=== PATIENT | female | born 1970 | race Caucasian/White ===

== ENCOUNTER → 2016-07-29 | Outpatient (CLI) | payer MEDICAID ==
[2016-07-29 11:18] LABS: Basophils % (A) 0 %; CH 32.8; CHCM 34.5; Eosinophils # (A) 0.1 k/uL (0-0.7); Eosinophils % (A) 2 %; HCT 44.9 % (34.0-46.0); HDW 2.38; HGB 15.2 gm/dL (11.4-16.0); Luc # (Auto) 0.12; Luc % (Auto) 2; Lymphocytes # (A) 2.4 k/uL (1.0-4.8); Lymphocytes % (A) 29 %; MCH 32.3 pg (25.0-35.0); MCHC 33.9 g/dL (31.0-37.0); MCV 95.3 fL (80.0-100.0); Mean Platelet Volume 6.2; Monocytes # (A) 0.5 k/uL (0-1.0); Monocytes % (A) 5 %; Neutrophils # (A) 5.3 k/uL (1.3-7.7); Neutrophils % (A) 63 %; RBC 4.71 m/uL (3.80-5.40); RDW 12.9 % (11.5-15.5); WBC 8.4 k/uL (3.8-10.6); WBC (Perox) 8.69
[2016-07-29 12:12] LABS: Hemoglobin A1C 5.3 % (4.2-6.1)
[2016-07-29 12:37] LABS: ALT 58 U/L (9-52); AST 48 U/L (14-36); Alkaline Phosphatase 90 U/L (38-126); Anion Gap 10 mmol/L; Blood Urea Nitrogen 13 mg/dL (7-17); Calcium 9.8 mg/dL (8.4-10.2); Carbon Dioxide 27 mmol/L (22-30); Chloride 101 mmol/L (98-107); Cholesterol 219 mg/dL (<200); Glucose 91 mg/dL (74-99); HDL Cholesterol 60 mg/dL (40-60); Magnesium 2.1 mg/dL (1.6-2.3); Non-African American GFR(MDRD) >60 (>60 ml/min/1.73 sqM); Potassium 4.9 mmol/L (3.5-5.1); Sodium 138 mmol/L (137-145); Triglycerides 180 mg/dL (<150)
== END | disposition home or self-care (01) ==
LOC: LABWHC1 09:55
PROVIDERS: ATTEND Nurse Practitioner Family
DX: G43.909 Migraine, unspecified, not intractable, without status migrainosus (principal)
CPT/HCPCS: 36415; 80053; 80061; 82306; 83036; 83735; 84439; 84443; 85025

== ENCOUNTER → 2016-07-30 | Outpatient (CLI) | payer MEDICAID ==
--- NOTE | 2016-08-04 13:30 | MM ---
Reason for exam: screening (asymptomatic). Last mammogram was performed 7 years and 9 months ago. History: Taking hormonal contraceptives for 19 years beginning at age 19. Physical Findings: A clinical breast exam by your physician is recommended on an annual basis and results should be correlated with mammographic findings. MG 3D Screening Mammo W/Cad Bilateral CC and MLO view(s) were taken. Prior study comparison: November 02, 2008, bilateral digital screening mammogram. The breast tissue is heterogeneously dense. This may lower the sensitivity of mammography. There is no discrete abnormality. ASSESSMENT: Negative, BI-RAD 1 RECOMMENDATION: Routine screening mammogram of both breasts in 1 year.
== END | disposition home or self-care (01) ==
LOC: RADMAMWWP 13:53
PROVIDERS: ATTEND Internal Medicine
DX: Z12.31 Encounter for screening mammogram for malignant neoplasm of breast (principal)
CPT/HCPCS: 77063; G0202

== ENCOUNTER 2019-01-07 10:20 | Emergency (ER) | payer MEDICAID, OTHER ==
[2019-01-07 10:38] VITALS: BP 148/70; PULSE 89; RESP 18; TEMP 98.3
--- NOTE | 2019-01-07 11:03 | ED ---
Lower Extremity Injury HPI - General Chief Complaint: Extremity Injury, Lower Stated Complaint: Fall Time Seen by Provider: 01/07/19 10:39 Source: patient, RN notes reviewed Mode of arrival: ambulatory Limitations: no limitations - History of Present Illness Initial Comments: 49-year-old female presents emergency Department chief complaint left knee pain. 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 Patient states that she slipped, twisted and fell onto her left knee. She has mild left ankle pain but denies any significant issues. Denies any head injury no loss conscious. Patient was advised to be seen in the ER secondary to work injury. She does admit that she had increasing pain since yesterday due to swelling. - Related Data Allergies Allergy/AdvReac Type Severity Reaction Status Date / Time No Known Allergies Allergy Verified 01/07/19 10:38 Review of Systems ROS Statement: Those systems with pertinent positive or pertinent negative responses have been documented in the HPI. ROS Other: All systems not noted in ROS Statement are negative. Past Medical History Past Medical History: No Reported History History of Any Multi-Drug Resistant Organisms: None Reported Past Surgical History: No Surgical Hx Reported Past Psychological History: No Psychological Hx Reported Smoking Status: Never smoker Past Alcohol Use History: Occasional Past Drug Use History: None Reported General Exam Limitations: no limitations General appearance: alert, in no apparent distress Head exam: Present: atraumatic, normocephalic, normal inspection Eye exam: Present: normal appearance, PERRL, EOMI. Absent: scleral icterus, conjunctival injection, periorbital swelling Cardiovascular Exam: Present: regular rate, normal rhythm, normal heart sounds. Absent: systolic murmur, diastolic murmur, rubs, gallop, clicks Extremities exam: Present: other (Left knee tenderness to the anterior medial aspect there is some ecchymosis noted moderate swelling has pain with valgus and varus no laxity with anterior posterior drawer, full range of motion neurovascular intact no Tenderness no tenderness proximal to the left) Neurological exam: Present: alert Skin exam: Present: warm, dry, intact, normal color. Absent: rash Course Vital Signs 01/07/19 10:36 Temperature 98.3 F Pulse Rate 89 Respiratory 18 Rate Blood Pressure 148/70 O2 Sat by Pulse 99 Oximetry Medical Decision Making - Medical Decision Making X-rays were obtained of the left knee there are no acute fractures. Conservative treatment will be continued. Patient will follow-up with [facility] and possible MRI if persistent symptoms Disposition Clinical Impression: Left knee sprain, Contusion of left knee Disposition: HOME SELF-CARE Condition: Stable Instructions (If sedation given, give patient instructions): Knee Pain (ED) Additional Instructions: Please return to the Emergency Department if symptoms worsen or any other co ncerns. Is patient prescribed a controlled substance at d/c from ED?: No Referrals: Forrest Tejada MD [Primary Care Provider] - 1-2 days Time of Disposition: 11:20
--- NOTE | 2019-01-07 11:25 | XR ---
EXAMINATION TYPE: XR knee 4V LT , DATE OF EXAM ORDERED: 01/07/2019 HISTORY: fall, pain. COMPARISON: None. FINDINGS: There is peaking of intercondylar spines. No fracture or dislocation is seen. Fullness in the suprapatellar region makes it impossible to exclude any joint effusion. IMPRESSION: 1. NO ACUTE OSSEOUS LESION. 2. EARLY CHANGES OF OSTEOARTHRITIS. 3. I COULD NOT EXCLUDE A LEFT-SIDED KNEE JOINT EFFUSION.
== END 2019-01-07 11:32 | disposition home or self-care (01) ==
LOC: EC 10:20
DX: S83.92XA Sprain of unspecified site of left knee, initial encounter (principal); W01.0XXA Fall on same level from slipping, tripping and stumbling without subsequent striking against object, initial encounter; Y93.01 Activity, walking, marching and hiking; Y92.69 Other specified industrial and construction area as the place of occurrence of the external cause; Y99.0 Civilian activity done for income or pay
CPT/HCPCS: 99283

== ENCOUNTER → 2020-01-31 | Outpatient (CLI) | payer MEDICAID ==
[2020-01-31 10:53] LABS: Basophils # (A) 0.1 k/uL (0-0.2); Basophils % (A) 1 %; Eosinophils # (A) 0.2 k/uL (0-0.7); Eosinophils % (A) 2 %; HCT 46.9 % (34.0-46.0); HGB 15.5 gm/dL (11.4-16.0); Lymphocytes # (A) 2.6 k/uL (1.0-4.8); Lymphocytes % (A) 32 %; MCH 31.6 pg (25.0-35.0); MCHC 33.1 g/dL (31.0-37.0); MCV 95.6 fL (80.0-100.0); Mean Platelet Volume 6.4; Monocytes # (A) 0.5 k/uL (0-1.0); Monocytes % (A) 6 %; Neutrophils # (A) 4.6 k/uL (1.3-7.7); Neutrophils % (A) 57 %; Platelet Count 310 k/uL (150-450); RDW 12.5 % (11.5-15.5)
[2020-01-31 15:28] LABS: Albumin 4.1 g/dL (3.80-4.90); Albumin/Globulin Ratio 2.05 (1.60-3.17); Anion Gap 4.3 mmol/L (4.00-12.00); BUN/Creat Ratio 16.25 Ratio (12.00-20.00); Calcium 9.6 mg/dL (8.7-10.3); Carbon Dioxide 28.7 mmol/L (21.6-31.8); Chol/HDL Ratio 3.53; LDL Cholesterol,Calculated 119.2 mg/dL (0.0-131.0); Magnesium 1.9 mg/dL (1.5-2.4); Non-African American GFR(CKD) 87.2 (60.0-200.0); Potassium 5.1 mmol/L (3.5-5.5); Total Bilirubin 0.8 mg/dL (0.2-1.2); Total Protein 6.1 g/dL (6.2-8.2); VLDL Calculation 19.8 mg/dL (5.00-40.00)
== END | disposition home or self-care (01) ==
LOC: LABWHC1 09:53
PROVIDERS: ATTEND Internal Medicine
DX: Z00.00 Encounter for general adult medical examination without abnormal findings (principal); I10 Essential (primary) hypertension; E78.2 Mixed hyperlipidemia; E55.9 Vitamin D deficiency, unspecified
CPT/HCPCS: 36415; 80053; 80061; 82306; 83735; 84443; 85025

== ENCOUNTER → 2020-03-22 | Outpatient (CLI) | payer MEDICAID ==
--- NOTE | 2020-03-22 11:48 | MM ---
Reason for exam: additional evaluation requested from prior study. Last mammogram was performed 3 years and 8 months ago. History: Taking hormonal contraceptives for 19 years beginning at age 19. Physical Findings: Nurse Summary: 0.25cm nodule in the right breast at 12 o'clock (nurse reena). MG 3D Diag Mammo W/Cad LINA Bilateral LM view(s) were taken. CC with magnification and LM with magnification view(s) were taken of the right breast. Spot compression CC and spot compression CCRM view(s) were taken of the left breast. Prior study comparison: July 30, 2016, bilateral MG 3d screening mammo w/cad. November 02, 2008, bilateral digital screening mammogram. The breast tissue is heterogeneously dense. This may lower the sensitivity of mammography. 12 o'clock subareolar calcifications on the right are new and heterogeneous for which a biopsy is recommended. Central left asymmetric density partially disperses becoming less defined. It moves medial on CCRM view. Ultrasound recommended. No MLO or LAT correlate. These results were verbally communicated with the patient and result sheet given to the patient on 03/22/20. ASSESSMENT: Incomplete: need additional imaging evaluation, BI-RAD 0 RECOMMENDATION: Ultrasound of both breasts.
--- NOTE | 2020-03-22 11:51 | USB ---
Reason for exam: additional evaluation requested from abnormal screening. History: Taking hormonal contraceptives for 19 years beginning at age 19. US Breast Limited BILAT Right complete breast ultrasound includes all four quadrants, the retroareolar region and axilla. Finding demonstrates no cystic or solid lesion seen. Left limited breast ultrasound including focal area of concern, retroareolar and axilla demonstrates no cystic or solid lesion seen. Scanned 11-1 o'clock. 6 month follow up left mammogram. These results were verbally communicated with the patient and result sheet given to the patient on 03/22/20. ASSESSMENT: Suspicious, BI-RAD 4 RECOMMENDATION: Stereotactic core biopsy of the right breast. Called Dr. Tejada's office with mammographic findings and has scheduled an appointment for the patient for 03/22/20 at 1:[address] Tarango. PRELIMINARY REPORT CALLED AND FAXED TO DR. TARANGO ON 03/22/20. Follow-up diagnostic mammogram of the left breast in 6 months.
== END | disposition home or self-care (01) ==
LOC: RADMAMWWP 09:23
PROVIDERS: ATTEND Internal Medicine
DX: N63.10 Unspecified lump in the right breast, unspecified quadrant (principal)
CPT/HCPCS: 77062; 77066

== ENCOUNTER → 2020-03-22 | Outpatient (CLI) | payer MEDICAID ==
[2020-03-22 13:34] VITALS: BP 129/77; PULSE 57; RESP 18; TEMP 98.5
--- NOTE | 2020-03-22 13:56 | P.GSHP ---
History of Present Illness H&P Date: 03/22/20 Chief Complaint: abnormal mammogram Suzanne is a 50 year old white female who noted some nodularity in her right breast about 8 weeks ago in the 12 oclock area. She had a bilateral mammogram on 03-22-20. This showed some calcification of concern near the subareolar area right breast. Stereotactic core biopsy was recommended for this. Central left asymmetric density was noted and an ultrasound was recommended for this. On the ultrasound no cystic or solid lesions were noted and 6 month follow-up left breast mammogram and ultrasound recommended. In the right breast an ultrasound was done and no cystic or solid lesions were noticed. Core biopsy of the right breast is recommended. The area seen radiographically does not seem to correspond to the area which the patient felt initially.. She felt initially seems to have decreased in prominence. Her last bilateral mammogram was July. She is not complaining of any pain, nipple discharge, or skin changes. Nodularity was not noted in relationship to her menstrual cycle. She has had no breast surgery. She has no history of any breast trauma or infection. Caffeine: 1 coffee/day Nicotine: Negative geraldine-bromine: occasional soy: none Family History: father: pancreatic cancer paternal grandmother: stomach cancer brother: Leukemia Hormonal History: menarche: 14 , breast fed: yes, first born at 28 periods regular on BCP BCP: 29 years hormones: none Surgical history: lasix surgery Medical history: HTN Social history: Smoke: Negative Alcohol: Occasional Drugs: Negative - Constitutional Constitutional: Denies chills, Denies fever - EENT Eyes: denies blurred vision, denies pain Ears: bilateral: tinnitus, deny: decreased hearing Ears, nose, mouth and throat: Denies headache, Denies sore throat - Breasts Breasts: bilateral: as per HPI - Cardiovascular Cardiovascular: Denies chest pain, Denies shortness of breath - Respiratory Respiratory: Denies cough, Denies 7 - Gastrointestinal Gastrointestinal: Denies abdominal pain, Denies diarrhea, Denies nausea, Denies vomiting - Genitourinary (Female) Genitourinary: Denies dysuria, Denies hematuria - Menstruation Comment: perimenopausal - Musculoskeletal Comment: left knee pain Musculoskeletal: Denies myalgias - Integumentary Integumentary: Denies pruritus, Denies rash - Neurological Neurological: Denies numbness, Denies weakness - Psychiatric Psychiatric: Denies anxiety, Denies depression - Endocrine Endocrine: Reports fatigue, Denies weight change - Hematologic/Lymphatic Comment: none - Allergic/Immunologic Allergic/Immunologic: Reports seasonal allergies Past Medical History Past Medical History: No Reported History History of Any Multi-Drug Resistant Organisms: None Reported Past Surgical History: No Surgical Hx Reported Past Psychological History: No Psychological Hx Reported Past Alcohol Use History: Occasional Past Drug Use History: None Reported Medications and Allergies Home Medications Medication Instructions Recorded Confirmed Type Cholecalciferol [Vitamin D3 (25 10,000 unit PO QAM 03/22/20 03/22/20 History Mcg = 1000 Iu)] Levonorgestrel-Ethin Estradiol 1 tab PO HS 03/22/20 03/22/20 History [Lutera-28 Tablet] lisinopriL [Zestril] 10 mg PO HS 03/22/20 03/22/20 History Allergies Allergy/AdvReac Type Severity Reaction Status Date / Time No Known Allergies Allergy Verified 03/22/20 13:12 Surgical - Exam BMI 39.9 - General well developed, no distress - Eyes normal ocular movement - ENT normal pinna, normal mucosa - Neck no masses, trachea midline - Respiratory normal expansion, normal respiratory effort, clear to auscultation - Cardiovascular Rhythm: regular Heart Sounds: normal: S1, S2 - Abdomen Abdomen: soft, bowel sounds - Integumentary normal turgor - Neurologic no disoriented, no combative - Musculoskeletal normal gait - Psychiatric oriented to time, oriented to person, oriented to place, speech is normal, memory intact Breast exam: BRA: 42C inspection: Bilateral grade 2 ptosis no skin indentation no nipple inversion Palpation: right breast: Multiple positional exam fibrocystic changes, at the 12 o'clock position there is a small area of nodularity which appears to be most likely fibrocystic in nature Right axilla: No adenopathy of concern Left breast: Multiple positional exam fibrocystic changes Left axilla: No adenopathy of concern Results Mammogram and ultrasound results reviewed with Dr. Brooke Assessment and Plan Assessment: Patient: 1. Right breast palpable nodularity 12:00 2. Abnormal right breast mammogram left breast ultrasound 3. Fibrocystic breast changes Plan: 1. Right breast stereotactic core biopsy area of microcalcifications question if this is in the area of the palpable nodularity 2. Repeat left breast mammogram and ultrasound in 6 months 3. Following stereotactic core biopsy. Review the location and may recommend an FNA of the area of palpable abnormality at 12:00 Risk and benefits of the procedure are discussed with the patient. She understands and wishes to proceed. CC: Dr. Tejada
== END | disposition home or self-care (01) ==
LOC: WWCWWP 12:53
PROVIDERS: ATTEND Surgery
DX: Z53.9 Procedure and treatment not carried out, unspecified reason (principal)

== ENCOUNTER → 2020-04-01 | Day surgery (SDC) | payer MEDICAID ==
[2020-04-01 09:37] VITALS: RESP 16
[2020-04-01 10:42] VITALS: BP 148/90; PULSE 55; TEMP 98.8
--- NOTE | 2020-04-01 11:11 | P.PCN ---
Date of Procedure: 04/01/20 Preoperative Diagnosis: Microcalcifications of concern right breast, periareolar area Postoperative Diagnosis: Same Procedure(s) Performed: Stereotactic core biopsy right breast Surgeon: Andria Tarango Pathology: other (breast tissue) Condition: stable Disposition: same day Indications for Procedure: Microcalcifications of concern right breast Operative Findings: Radiograph of specimens reveals microcalcifications of concern Description of Procedure: Suzanne is a 50-year-old white female who had a mammogram performed on 03-22-20 revealing 12:00 subareolar calcifications on the right which were new and heterogeneous for which stereotactic biopsy was recommended. The patient understood the risk and benefits and wished to proceed. The patient was taken to the stereotactic core biopsy room and positioned on the low rad table. A demonstrator sales film was obtained. The area of concern was identified. A CC from above approach was utilized. The breast was prepped using Betadine. 24 mL of 1% lidocaine was used to anesthetize the area of concern A 9-gauge vacuum-assisted core rotating biopsy needle was driven to the correct coordinates. The needle was fired and a post fire film was obtained revealing the needle told to be in the correct location. Approximately 14 core biopsies were obtained. Radiograph of the specimen revealed the area of concern had been adequately sampled. The findings were concordant with the area that we were sampling. A secure jayce top hat clip was left and noted to be in the correct location on post procedure radiograph. The patient tolerated the procedure in stable condition. She will follow up next week with Dr. Arriaga. Specimen is sent for pathology. Of importance is the fact that the patient had a palpable area at approximately the 12 o'clock position of the right breast which may or may not corresponded at which is seen radiographically. This will be further assessed on her postoperative visit.
--- NOTE | 2020-04-01 17:37 | MM ---
EXAMINATION TYPE: MG stereo VAD BX RT DATE OF EXAM: 04/01/2020 COMPARISON: 03/22/2020 CLINICAL HISTORY: 50-year-old female R92.8 TECHNIQUE: Stereotactic guided core biopsy of the anterior 12:00 right breast microcalcifications. FINDINGS: The procedure of stereotactic guided core biopsy was explained to the patient. Benefits, a lternatives, and risks were discussed. An informed consent was then obtained. The shortness pathway for biopsy was chosen. [facility] pathway was a superior approach. I performed the localization, then surgeon, Dr. Batr Catalan performed the remainder of the procedure. A vacuum as sisted biopsy gun was used to obtain multiple core samples. The patient tolerated the procedure well without any immediate complication. The patient was kept in the radiology department for short stay after the procedure and then discharged home in stable condi tion. Targeted calcifications are identified in specimen mammogram. Post biopsy mammogram shows the clip to appear in satisfactory position relative to the targeted area of concern on the preprocedure images. Minimal residual calcifications remaining at the site of biopsy. IMPRESSION: SUCCESSFUL, UNCOMPLICATED STEREOTACTIC GUIDED CORE BIOPSY OF 12:00 ANTERIOR RIGHT BREAST MICROCALCIFI CATIONS. FULL PATHOLOGY RESULTS TO FOLLOW. RECOMMENDATION: 1. Pathology results of the right breast pending. 2. Six-month follow-up diagnostic left breast mammogram as was recommended on 03/22/2020.
== END ==
LOC: RADMAMWWP 09:26
PROVIDERS: ATTEND Surgery
DX: N64.1 Fat necrosis of breast (principal); N61.0 Mastitis without abscess; R92.1 Mammographic calcification found on diagnostic imaging of breast
CPT/HCPCS: 88305; 19081; J2001

== ENCOUNTER → 2020-04-11 | Outpatient (CLI) | payer MEDICAID ==
--- NOTE | 2020-04-11 09:14 | P.PN ---
Progress Note - Text Progress Note Date: 04/11/20 Stacia is a -year-old white female status post right breast stereotactic core biopsy on . Pathology revealed fat necrosis/scar with calcifications and inflammation. This was negative for malignancy. The postprocedure mammogram was reviewed with radiology and the area of the clip appears to be exactly in the area of palpable abnormality. She has developed a small hematoma in the area of the biopsy which is right over the area of previous palpable abnormality. This was approximately 3 cm from the nipple and when measured in the office the area of probable changes 3 cm from the nipple. It is therefore felt most likely that the area of probable change corresponds with the area seen on mammogram. Physical examination: Mild ecchymosis right breast small hematoma at site of biopsy no evidence of infection Impression: 1. Probable change right breast consistent with the area posterior biopsy most likely represents fat necrosis/scar with calcifications and inflammation Plan: 1. Examine patient again after hematoma has Resolved 2. We have discussed watchful waiting versus core biopsy of probable change or biopsy in the operating room of the area persists At this time I believe that the area that was probable initially is most likely consistent with that which was biopsied stereotactically and benign.
[2020-04-11 09:27] VITALS: BP 140/72; PULSE 66; RESP 18; TEMP 98.1
== END | disposition home or self-care (01) ==
LOC: WWCWWP 09:10
PROVIDERS: ATTEND Surgery
DX: Z53.9 Procedure and treatment not carried out, unspecified reason (principal)

== ENCOUNTER → 2020-05-09 | Outpatient (CLI) | payer MEDICAID ==
[2020-05-09 14:18] VITALS: BP 171/80; PULSE 74; RESP 20; TEMP 97.8
--- NOTE | 2020-05-09 14:26 | P.PN ---
Progress Note - Text Progress Note Date: 05/09/20 Stacia is a 50-year-old white female status post right breast stereotactic core biopsy on . Pathology revealed fat necrosis/scar with calcifications and inflammation. This was negative for malignancy. The postprocedure mammogram was reviewed with radiology and the area of the clip ap pears to be exactly in the area of palpable abnormality. She developed a small hematoma in the area of the biopsy which is right over the area of previous palpable abnormality. This was approximately 3 cm from the nipple and when measured in the office the area of palpable change was 3 cm from the nipple. It is therefore felt most likely that the area of palpable change corresponds with the area seen on mammogram and biopsied. The patient states at this time she does not feel the initial lump. She has a small hematoma at the biopsy site near the skin surface. She has had no fever or chills, she has no complaints related to her breast at this time. She is not complaining of any breast pain. Physical examination: Mild ecchymosis right breast small hematoma at site of biopsy no evidence of infection. This area of initial nodularity in the right breast is no longer palpable. Impression: 1. Palpable change right breast consistent with the area of prior biopsy most likely represents fat necrosis/scar with calcifications and inflammation, no longer able to palpate Plan: 1. repeat right breast mammogram and ultrasound in 6 months with examination at that time 2. If patient notes any changes in her breast of concern we would like to see her immediately. At this time I believe that the area that was palpable initially is most likely consistent with that which was biopsied stereotactically and benign.
== END | disposition home or self-care (01) ==
LOC: WWCWWP 14:09
PROVIDERS: ATTEND Surgery
DX: L76.32 Postprocedural hematoma of skin and subcutaneous tissue following other procedure (principal); Z98.890 Other specified postprocedural states

== ENCOUNTER → 2020-10-08 | Outpatient (CLI) | payer MEDICAID ==
--- NOTE | 2020-10-08 14:14 | MM ---
Reason for exam: follow-up at short interval from prior study. Last mammogram was performed 7 months ago. History: Benign MG stereo VAD BX RT of the right breast, April 01, 2020. Taking hormonal contraceptives for 19 years beginning at age 19. Physical Findings: Nurse did not find any significant physical abnormalities on exam. MG 3D Diag Mammo W/Cad LINA Bilateral CC and MLO view(s) were taken. Prior study comparison: March 22, 2020, bilateral MG 3d diag mammo w/cad LINA. July 30, 2016, bilateral MG 3d screening mammo w/cad. There are scattered fibroglandular densities. Previous mammotome biopsy in the right breast. The central left CC asymmetric density is less defined and shows no persisting abnormality. No significant new findings when compared with previous films. These results were verbally communicated with the patient and result sheet given to the patient on 10/08/20. ASSESSMENT: Benign, BI-RAD 2 RECOMMENDATION: Routine screening mammogram of both breasts in 1 year.
== END | disposition home or self-care (01) ==
LOC: RADMAMWWP 13:02
PROVIDERS: ATTEND Surgery
DX: N64.89 Other specified disorders of breast (principal)
CPT/HCPCS: 77062; 77066

== ENCOUNTER → 2020-10-29 | Outpatient (CLI) | payer MEDICAID | END | disposition home or self-care (01) | LOC: LABWHC1 14:13 | PROVIDERS: ATTEND Thoracic Surgery (Cardiothoracic Vascular Surgery) | DX: Z00.00 Encounter for general adult medical examination without abnormal findings (principal) | CPT/HCPCS: 87635 ==

== ENCOUNTER 2021-04-13 13:09 | Emergency (ER) | payer MEDICAID ==
[2021-04-13 13:15] VITALS: BP 148/78; PULSE 61; RESP 18; TEMP 98.2
[2021-04-13] MEDS ORDERED: KETOROLAC 15 MG/ML 1 ML VIAL IM STA (13:38)
--- NOTE | 2021-04-13 13:48 | ED ---
General Adult HPI - General Chief complaint: Extremity Injury, Upper Stated complaint: Fall-L shoulder injury Time Seen by Provider: 04/13/21 13:16 Source: patient Mode of arrival: ambulatory Limitations: no limitations - History of Present Illness Initial comments: 51-year-old female presents to the emergency room for a chief complaint of left shoulder pain. Patient was walking into work 2 days ago when she slipped and fell. States she hit her left elbow on a car and it jammed her left shoulder. When she woke up yesterday morning the pain was severe. States it has persisted and it is painful to move. Patient did not hit her head.Patient has no other complaints at this time including shortness of breath, chest pain, abdominal pain, nausea or vomiting, headache, or visual changes. - Related Data Home Medications Medication Instructions Recorded Confirmed Cholecalciferol [Vitamin D3 (25 10,000 unit PO QAM 03/22/20 05/09/20 Mcg = 1000 Iu)] lisinopriL [Zestril] 10 mg PO HS 03/22/20 05/09/20 Previous Rx's Medication Instructions Recorded Ketorolac [Toradol] 10 mg PO TID PRN 5 Days #15 tab 04/13/21 Allergies Allergy/AdvReac Type Severity Reaction Status Date / Time No Known Allergies Allergy Verified 04/13/21 13:14 Review of Systems ROS Statement: Those systems with pertinent positive or pertinent negative responses have been documented in the HPI. ROS Other: All systems not noted in ROS Statement are negative. Past Medical History Past Medical History: Hypertension, Sleep Apnea/CPAP/BIPAP History of Any Multi-Drug Resistant Organisms: None Reported Past Surgical History: No Surgical Hx Reported Additional Past Surgical History / Comment(s): lasik eye surgery Past Anesthesia/Blood Transfusion Reactions: No Reported Reaction Past Psychological History: No Psychological Hx Reported Smoking Status: Never smoker Past Alcohol Use History: Occasional Past Drug Use History: None Reported - Past Family History Father Family Medical History: Cancer Additional Family Medical History / Comment(s): pancreatic cancer Brother(s) Family Medical History: Cancer Additional Family Medical History / Comment(s): leukemia General Exam - General Exam Comments Initial Comments: Left shoulder: Patient has a radial pulse 2+, capillary refill less than 2 seconds left upper extremity. Patient has about 30 of flexion and abduction of the left shoulder but then pain is elicited. Patient does not have any ecchymosis or edema. Sensation intact left upper extremity. Limitations: no limitations General appearance: alert, in no apparent distress Head exam: Present: atraumatic Eye exam: Present: normal appearance, PERRL, EOMI. Absent: scleral icterus, conjunctival injection ENT exam: Present: normal exam, mucous membranes moist Neck exam: Present: normal inspection, full ROM. Absent: tenderness Respiratory exam: Present: normal lung sounds bilaterally. Absent: respiratory distress, wheezes Cardiovascular Exam: Present: regular rate, normal rhythm, normal heart sounds GI/Abdominal exam: Present: soft, normal bowel sounds. Absent: distended, tenderness Neurological exam: Present: alert Course Vital Signs 04/13/21 13:10 Temperature 98.2 F Pulse Rate 61 Respiratory 18 Rate Blood Pressure 148/78 O2 Sat by Pulse 98 Oximetry Medical Decision Making - Medical Decision Making Vitals are stable. Patient is well-appearing. HPI and physical exam as documented. X-ray of the left shoulder shows no acute fracture or dislocation. At this time patient was given a sling for comfort but advised to only use the sling as absolute necessary and to increase range of motion as much as possible for reducing the risk of adhesive capsulitis. She will follow-up with orthopedics. If she has any worsening symptoms or fever she will return to the emergency room. Disposition Clinical Impression: Shoulder pain, left Disposition: HOME SELF-CARE Condition: Good Instructions (If sedation given, give patient instructions): Shoulder Pain (ED) Additional Instructions: Please take Toradol or Tylenol for pain. Follow-up with orthopedics. Only use sling when necessary and try to do range of motion exercises. Return to the emergency room for any worsening symptoms. Prescriptions: Ketorolac [Toradol] 10 mg PO TID PRN 5 Days #15 tab PRN Reason: Pain Is patient prescribed a controlled substance at d/c from ED?: No Referrals: Forrest Tejada MD [Primary Care Provider] - 1-2 days Kat Talavera DO [Doctor of Osteopathic Medicine] - 1-2 days Time of Disposition: 15:28
--- NOTE | 2021-04-13 14:03 | XR ---
EXAMINATION TYPE: XR shoulder complete LT DATE OF EXAM: 04/13/2021 CLINICAL HISTORY: Pain since recent injury. TECHNIQUE: Three views of the left shoulder are obtained. COMPARISON: None. FINDINGS: There is no acute fracture/dislocation evident in the left shoulder. The acromioclavicula r and glenohumeral joint spaces appear within normal limits. The visualized ribs are intact and unre markable. IMPRESSION: There is no acute fracture or dislocation in the left shoulder.
== END 2021-04-13 15:59 | disposition home or self-care (01) ==
LOC: EC 13:09
DX: M25.512 Pain in left shoulder (principal); I10 Essential (primary) hypertension
CPT/HCPCS: 99283; 96372; 73030; J1885

== ENCOUNTER → 2021-11-06 | Outpatient (CLI) | payer MEDICAID ==
[2021-11-06 15:05] LABS: Basophils # (A) 0.05 X 10*3/uL (0.00-0.10); Basophils % (A) 0.5 %; Eosinophils # (A) 0.14 X 10*3/uL (0.04-0.35); Eosinophils % (A) 1.5 %; HCT 42.4 % (37.2-46.3); HGB 14.4 g/dL (12.0-15.0); Lymphocytes # (A) 2.66 X 10*3/uL (0.90-5.00); Lymphocytes % (A) 28.1 %; MCH 32.9 pg (27.0-32.0); MCV 96.8 fL (80.0-97.0); Mean Platelet Volume 8.9 fL (9.5-12.2); Monocytes # (A) 0.79 X 10*3/uL (0.20-1.00); Monocytes % (A) 8.4 %; NRBC Per 100 WBC 0 /100 WBCS (0.0-0.0); Neutrophils # (A) 5.73 X 10*3/uL (1.80-7.70); Neutrophils % (A) 60.5 %; Platelet Count 300 X 10*3/uL (140-440); RBC 4.38 X 10*6/uL (4.10-5.20); RDW 12.1 % (11.5-14.5); WBC 9.46 X 10*3/uL (4.50-10.00)
[2021-11-06 16:41] LABS: ALT 71 U/L (8-44); AST 43 U/L (13-35); African American GFR (CKD) 119.3 (60.0-200.0); Albumin 4.2 g/dL (3.8-4.9); Alkaline Phosphatase 115 U/L (41-126); BUN/Creat Ratio 19.41 Ratio (12.00-20.00); Blood Urea Nitrogen 13.1 mg/dL (9.0-27.0); Calcium 9.6 mg/dL (8.7-10.3); Carbon Dioxide 26.1 mmol/L (20.0-27.5); Chloride 102 mmol/L (96-109); Glucose 97 mg/dL (70-110); LDL Cholesterol,Calculated 105.9 mg/dL (0.0-131.0); Potassium 4.6 mmol/L (3.5-5.5); Sodium 140 mmol/L (135-145); Total Protein 6.2 g/dL (6.2-8.2); VLDL Calculation 18.06 mg/dL (5.00-40.00)
== END | disposition home or self-care (01) ==
LOC: LABWHC1 08:44
PROVIDERS: ATTEND Internal Medicine
DX: Z13.29 Encounter for screening for other suspected endocrine disorder (principal); I10 Essential (primary) hypertension; E55.9 Vitamin D deficiency, unspecified; E78.2 Mixed hyperlipidemia
CPT/HCPCS: 36415; 80053; 80061; 82306; 84439; 84443; 85025

== ENCOUNTER → 2021-12-05 | Outpatient (CLI) | payer MEDICAID ==
--- NOTE | 2021-12-08 09:23 | MM ---
Reason for Exam: Screening (asymptomatic). Last mammogram was performed 1 year(s) and 1 month(s) ago. Patient History: Menarche at age 14. First Full-Term at age 28. Patient has history of breast feeding. Hormonal Contraceptives, starting at age 19 for 29 years. 04/01/2020, Benign Core Biopsy on the right side. Last menstrual period: 11/28/2021 Risk Values: Shantell 5 year model risk: 1.3%. NCI Lifetime model risk: 11.8%. Prior Study Comparison: 07/30/2016 Bilateral Screening Mammogram, [facility]. 03/22/2020 Bilateral Diagnostic Mammogram, [facility]. 10/08/2020 Bilateral Diagnostic Mammogram, [facility]. Tissue Density: There are scattered fibroglandular densities. Findings: Analyzed By CAD. There is no suspicious group of microcalcifications or new suspicious mass in either breast. Overall Assessment: Negative, BI-RAD 1 Management: Screening Mammogram of both breasts in 1 year. A clinical breast exam by your physician is recommended on an annual basis and results should be correlated with mammographic findings. [facility] will attempt to contact patient to return for supplemental views and ultrasound if indicated. Electronically signed and approved by: Nik Aden DO
== END | disposition home or self-care (01) ==
LOC: RADMAMWWP 09:50
PROVIDERS: ATTEND Internal Medicine
DX: Z12.31 Encounter for screening mammogram for malignant neoplasm of breast (principal)
CPT/HCPCS: 77063; 77067

== ENCOUNTER → 2022-09-16 | Outpatient (CLI) | payer MEDICAID ==
[2022-09-16 22:55] LABS: HCT 40.9 % (37.2-46.3); HGB 13.8 d/dL (12.0-15.0); MCH 32.9 pg (27.0-32.0); MCHC 33.7 d/dL (32.0-37.0); MCV 97.6 FL (80.0-97.0); Mean Platelet Volume 9.1 FL (9.5-12.2); NRBC Per 100 WBC 0 X 10*3/uL (0.00-0.01); Platelet Count 264 X 10*3/uL (140-440); RBC 4.19 X 10*6/uL (4.10-5.20); RDW 12.1 % (11.5-14.5); WBC 9.09 X 10*3/uL (4.50-10.00)
[2022-09-17 01:08] LABS: Estradiol <20.0 pg/mL; T4, Free (Free Thyroxine) 1.17 ng/dL (0.80-1.80)
[2022-09-17 01:49] LABS: Follicle Stimulating Hormone 29.8 mIU/mL; Luteinizing Hormone 16.3 mIU/mL
== END | disposition home or self-care (01) ==
LOC: LABWHC1 11:06
PROVIDERS: ATTEND Obstetrics & Gynecology
DX: Z13.29 Encounter for screening for other suspected endocrine disorder (principal); N93.8 Other specified abnormal uterine and vaginal bleeding; R53.81 Other malaise; R53.83 Other fatigue
CPT/HCPCS: 36415; 82670; 83001; 83002; 84439; 84443; 85027

== ENCOUNTER → 2023-01-06 | Outpatient (CLI) | payer MEDICAID ==
--- NOTE | 2023-01-06 09:05 | US ---
EXAMINATION TYPE: US pelvis complete transvag DATE OF EXAM: 01/06/2023 COMPARISON: Pelvic ultrasound 11/30/2014 CLINICAL INDICATION: Female, 53 years old with history of N93.8 ABNORMAL BLEEDING; heavy prolonged, i rregular bleeding with clots TECHNIQUE: Transvaginal (TV). Transvaginal sonographic images were medically necessary to better as sess the following anatomy: Endometrium Date of LMP: unsure, last episode of bleeding was November 15 and lasted 2 weeks EXAM MEASUREMENTS: Uterus: 8.1x4.3x5.4 cm Endometrial Stripe: 1.0 cm Right Ovary: not visualized Left Ovary: not visualized 1. Uterus: Anteverted heterogenous, several anechoic areas seen throughout, largest 2 areas measur ed: mid: 0.9x0.7x1.0cm fundus: 1.0x0.8x0.9 2. Endometrium: wnl 3. Right Ovary: Obscured by overlying bowel gas 4. Left Ovary: Obscured by overlying bowel gas 5. Bilateral Adnexa: Obscured by overlying bowel gas 6. Posterior cul-de-sac: wnl exam limited by bowel and body habitus Images within normal limits. Anteverted heterogenous uterus with several myometrial cysts identified. Both ovaries and adnexa are obscured by overlying bowel gas. No free fluid. IMPRESSION: 1. No acute pelvic process. 2. Several uterine myometrial cysts identified. This raises possibility of adenomyosis. 3. Endometrium is within normal limits. 4. Both ovaries are not visualized due to overlying bowel gas.
== END | disposition home or self-care (01) ==
LOC: RADUSWWP 07:48
PROVIDERS: ATTEND Obstetrics & Gynecology
DX: N93.8 Other specified abnormal uterine and vaginal bleeding (principal); N85.8 Other specified noninflammatory disorders of uterus
CPT/HCPCS: 76830; 76856

== ENCOUNTER → 2023-01-06 | Outpatient (CLI) | payer MEDICAID ==
--- NOTE | 2023-01-06 09:16 | MM ---
Reason for Exam: Screening (asymptomatic). Last mammogram was performed 1 year(s) and 2 month(s) ago. Patient History: Menarche at age 14. First Full-Term at age 28. Patient has history of breast feeding. Hormonal Contraceptives, starting at age 19 for 29 years. 04/01/2020, Benign Core Biopsy on the right side. Risk Values: Shantell 5 year model risk: 1.3%. NCI Lifetime model risk: 11.4%. Prior Study Comparison: 03/22/2020 Bilateral Diagnostic Mammogram, [facility]. 10/08/2020 Bilateral Diagnostic Mammogram, [facility]. 12/05/2021 Bilateral MG 3D screening mammo w/cad, [facility]. Tissue Density: There are scattered fibroglandular densities. Findings: Analyzed By CAD. There is no suspicious group of microcalcifications or new suspicious mass. Overall Assessment: Negative, BI-RAD 1 Management: Screening Mammogram of both breasts in [address] [facility] will attempt to contact patient to return for supplemental views and ultrasound if indicated. Patient should continue monthly self-breast exams. A clinical breast exam by your physician is recommended on an annual basis. This exam should not preclude additional follow-up of suspicious palpable abnormalities. Note on Shantell scores and lifetime risk: 1. A Shantell score greater than 3% is considered moderate risk. If this is the case, consider specialist referral to assess eligibility for a risk reducing agent. 2. If overall lifetime risk for the development of breast cancer is 20% or higher, the patient may qualify for future screening with alternating mammogram and breast MRI. Electronically signed and approved by: Nik Aden DO
== END | disposition home or self-care (01) ==
LOC: RADMAMWWP 07:45
PROVIDERS: ATTEND Internal Medicine
DX: Z12.31 Encounter for screening mammogram for malignant neoplasm of breast (principal)
CPT/HCPCS: 77063; 77067

== ENCOUNTER → 2023-02-09 | Outpatient (CLI) | payer MEDICAID ==
--- NOTE | 2023-02-09 10:44 | CA ---
Transthoracic Echo Report Name: Suzanne Hernandez Age: 53 Gender: F : 1970 Exam Date: 02/09/2023 08:39 Exam Location: [place] [facility] Ht (in): 67 Wt (lb): 267 Ordering Physician: Forrest Tejada MD Attending/Referring Phys: Telephone Assembler Gracie Washington RDCS Procedure CPT: Indications: Obstructive sleep apnea Cardiac Hx: Technical Quality: Fair Contrast 1: Total Dose (mL): Contrast 2: Total Dose (mL): MEASUREMENTS (Male / Female) Normal Values 2D ECHO LV Diastolic Diameter PLAX 4.9 cm 4.2 - 5.9 / 3.9 - 5.3 cm LV Systolic Diameter PLAX 2.7 cm IVS Diastolic Thickness 1.2 cm 0.6 - 1.0 / 0.6 - 0.9 cm LVPW Diastolic Thickness 1.1 cm 0.6 - 1.0 / 0.6 - 0.9 cm LV Relative Wall Thickness 0.5 RV Internal Dim ED PLAX 3.3 cm LA Volume 96.1 cm??? 18 - 58 / 22 - 52 cm??? LA Volume Index 39.2 cm???/m??? 16 - 28 cm???/m??? M-MODE Aortic Root Diameter MM 2.9 cm LA Systolic Diameter MM 4.5 cm LA Ao Ratio MM 1.6 AV Cusp Separation MM 2.1 cm DOPPLER AV Peak Velocity 140.4 cm/s AV Peak Gradient 7.9 mmHg AV Mean Velocity 94.4 cm/s AV Mean Gradient 4.0 mmHg AV Velocity Time Integral 28.4 cm LVOT Peak Velocity 103.4 cm/s LVOT Peak Gradient 4.3 mmHg LVOT Velocity Time Integral 22.5 cm MV Area PHT 4.3 cm??? Mitral E Point Velocity 95.6 cm/s Mitral A Point Velocity 63.0 cm/s Mitral E to A Ratio 1.5 MV Deceleration Time 178.2 ms MV E' Velocity 7.7 cm/s Mitral E to MV E' Ratio 12.5 TR Peak Velocity 207.0 cm/s TR Peak Gradient 17.1 mmHg Right Ventricular Systolic Press 22.1 mmHg FINDINGS Left Ventricle Mildly increased left ventricular wall thickness. Left ventricular cavity size normal. Normal left ventricular systolic function with no obvious regional wall motion abnormalities. Normal left ventricular diastolic filling pattern. Left ventricular ejection fraction is estimated at 55-60 %. Right Ventricle Normal right ventricular size and function. Right ventricular systolic pressure within normal limits. Right Atrium Normal right atrial size. Left Atrium Mildly increased left atrial volume. Mildly increased left atrial area. Mitral Valve Structurally normal mitral valve. No mitral stenosis. Mild mitral regurgitation. Aortic Valve No aortic valve stenosis or regurgitation. Tricuspid Valve Structurally normal tricuspid valve. Mild tricuspid regurgitation. Pulmonic Valve Structurally normal pulmonic valve. Pericardium No pericardial effusion. Echo free space anterior to the right ventricle likely represents a fat pad. Aorta Normal size aortic root and proximal ascending aorta. CONCLUSIONS Normal LV systolic function Previewed by: Dr. Robert Garcia MD (Electronically Signed) Final Date: 09 February 2023 10:43
--- NOTE | 2023-02-09 10:54 | CA ---
Exercise Nuclear Stress Test Report Name: Suzanne Hernandez Exam Date: 02/09/2023 09:40 Exam Location: [place] [facility] Ht (in): 67 Wt (lb): 267 BSA: 2.29 Ordering Phys: Forrest Gardiner MD Referring Phys: FORREST GARDINER,, Technologist: Hossein Mueller Age: 53 Gender: F : 1970 Procedure CPT: Indications: Obstructive sleep apnea ICD-10 Codes: Patient History: Medications: LISINOPRIL Meds past 24 hrs: Pretest Chest Pain: STRESS TEST Natan Protocol Exercise Duration (min:sec): 06:[address] Depressions (mm): Angina Score: Higuera Score: Resting HR (bpm): 72 Peak HR (bpm): 146 Resting BP (mmHg): 141 / 100 Peak BP (mmHg): 214 / 87 MPHR: 169 Target HR: 144 % MPHR: 86 METS: 8.0 Total Dose: Peak Dose: Atropine: Double Product: 77884 BP Response: Stress Termination: Reached target heart rate Stress Symptoms: No chest pain or symptoms Stress Summary: ECG ANALYSIS Resting ECG: Stress ECG: CONCLUSIONS Good exercise tolerance Mild EKG changes noted on the recovery phase Dr. Robert Garcia MD (Electronically Signed) Final Date: 09 February 2023 10:53
--- NOTE | 2023-02-09 12:15 | NM ---
EXAMINATION TYPE: NM stress cardiolite complete DATE OF EXAM: 02/09/2023 COMPARISON: NONE CLINICAL INDICATION: Female, 53 years old with history of Obstructive sleep apnea; TECHNIQUE: After the intravenous administration of 9.8 mCi Tc 99m Sestamibi - Rest images obtained 4 5 minutes post injection. The patient exercised using a LOVE protocol and 1 minute prior to peak e xercise was injected with 26.2 mCi Tc 99m Sestamibi - Stress images obtained 30 minutes post injectio n. FINDINGS: Targeted heart rate was achieved during performance of the study. Review of stress and rest SPECT waqas ges demonstrates no distinct perfusion abnormality. Gated analysis shows normal wall motion with an estimated left ventricular ejection fraction of 64 %. IMPRESSION: No scintigraphic evidence for reversible ischemia
--- NOTE | 2023-02-09 18:36 | BD ---
EXAMINATION TYPE: Axial Bone Density DATE OF EXAM: 02/09/2023 CLINICAL HISTORY: 53 years old Female. ICD-10 CODE: M85.851 OT DISRD OF BONE DENSITY Height: 5 ft 7 in Weight: 267 FRAX RISK QUESTIONS: Alcohol (3 or more units per day): no Family History (Parent hip fracture): no Glucocorticoids (More than 3mos): no (Ex: prednisone, prednisolone, methylprednisolone, dexamethasone, and hydrocortisone). History of Fracture in Adulthood: no Secondary Osteoporosis: 1. Type 1 Diabetes: no 2. Hyperthyroidism: no 3. Menopause before 45: no 4. Malnutrition: no 5. Chronic liver disease: no Rheumatoid Arthritis: no Current Tobacco Use: no RISK FACTORS HISTORY OF: Surgery to Spine/Hip(right/left)/Wrist (right/left): no Family History of Osteoporosis: no Active: yes Diet low in dairy products/other sources of calcium: no Postmenopausal woman: yes Take estrogen and/or progesterone medications: no Lost more than 2 inches in height since high school: no Frequent falls: yes Poor Health: good Hyperparathyroidism: no Adrenal Insufficiency: no MEDICATIONS: Additional Medications: lisinopril Additional History: EXAM MEASUREMENTS: Bone mineral densitometry was performed using the [email or web address] System. Bone mineral density as measured about the Lumbar spine is: ----- L1-L4(G/cm2): 1.390 T Score Values are as follows: ----- L1: 1.3 ----- L2: 1.8 ----- L3: 1.8 ----- L4: 1.9 ----- L1-L4: 1.8 Z Score Values are as follows: ----- L1: 0.6 ----- L2: 1.1 ----- L3: 1.1 ----- L4: 1.2 ----- L1-L4: 1.1 baseline Bone mineral density about the R hip (g/cm2): 1.125 Bone mineral density about the L hip (g/cm2): 1.147 T Score values are as follows: -----R Neck: 0.6 -----L Neck: 0.8 -----R Total: 1.5 -----L Total: 1.2 Z Score values are as follows: -----R Neck: 0.7 -----L Neck: 0.9 -----R Total: 1.1 -----L Total: 0.9 baseline FRAX%s: The graph provided illustrates a 3.2 % chance for a major osteoporotic fx and a 0.0 % chance for the hips probability for fx in 10 years time. IMPRESSION: Normal (Values between +1 and -1 indicate normal bone mass). Consider repeating this study in 5 year s or sooner if there is some new clinical indication. NOTE: T-SCORE=SD OF THE YOUNG ADULT MEAN.
== END | disposition home or self-care (01) ==
LOC: RADBDWWP 07:27
PROVIDERS: ATTEND Internal Medicine
DX: M85.851 Other specified disorders of bone density and structure, right thigh (principal); G47.33 Obstructive sleep apnea (adult) (pediatric); R07.9 Chest pain, unspecified
CPT/HCPCS: 93017; 93306; 77080; 78452; A9500

== ENCOUNTER 2023-04-18 03:02 | Emergency (ER) | payer MEDICAID ==
--- NOTE | 2023-04-18 03:28 | ED ---
Chest Pain HPI - General Chief Complaint: Chest Pain Stated Complaint: Chest Pain Time Seen by Provider: 04/18/23 03:10 Source: patient Mode of arrival: ambulatory Limitations: no limitations - History of Present Illness MD Complaint: chest pain Onset/Timin -: minutes(s) Onset: awoke with symptoms Pain Location: left chest Pain Radiation: jaw/teeth Severity: moderate Quality: aching Consistency: now resolved Improves With: nothing Worsens With: nothing Treatments Prior to Arrival: none - Related Data Home Medications Medication Instructions Recorded Confirmed lisinopriL [Zestril] 10 mg PO HS 03/22/20 09/21/22 Allergies Allergy/AdvReac Type Severity Reaction Status Date / Time No Known Allergies Allergy Verified 04/18/23 03:07 Review of Systems ROS Statement: Those systems with pertinent positive or pertinent negative responses have been documented in the HPI. ROS Other: All systems not noted in ROS Statement are negative. Constitutional: Denies: fever, chills ENT: Denies: throat pain Respiratory: Denies: cough, dyspnea Cardiovascular: Reports: chest pain. Denies: palpitations, orthopnea, edema, syncope Gastrointestinal: Denies: abdominal pain, nausea, vomiting Genitourinary: Denies: dysuria, hematuria Musculoskeletal: Denies: back pain Skin: Denies: rash Neurological: Denies: headache, weakness, numbness Psychiatric: Denies: anxiety EKG Findings - EKG Results: EKG: interpreted by ANGELAD, sinus rhythm (Rate 66 bpm), normal QRS - Blocks, Clemmons, Hypertrophy, ST Abn: QRS axis and voltage: left axis deviation (-30 to -90) (Borderline) Repolarization changes or abnormalities: nonspecific abnormality, ST segment, and/or T wave Past Medical History Past Medical History: Hypertension, Sleep Apnea/CPAP/BIPAP History of Any Multi-Drug Resistant Organisms: None Reported Past Surgical History: No Surgical Hx Reported Additional Past Surgical History / Comment(s): lasik eye surgery Past Anesthesia/Blood Transfusion Reactions: No Reported Reaction Additional Past Anesthesia/Blood Transfusion Reaction / Comment(s): no blood transfusion Past Psychological History: No Psychological Hx Reported Smoking Status: Never smoker Past Alcohol Use History: Occasional Past Drug Use History: None Reported - Past Family History Father Family Medical History: Cancer Additional Family Medical History / Comment(s): pancreatic cancer Brother(s) Family Medical History: Cancer Additional Family Medical History / Comment(s): leukemia General Exam Limitations: no limitations General appearance: alert, in no apparent distress Head exam: Present: atraumatic, normocephalic Eye exam: Present: normal appearance. Absent: scleral icterus, conjunctival injection ENT exam: Present: normal oropharynx Neck exam: Present: normal inspection Respiratory exam: Present: normal lung sounds bilaterally. Absent: respiratory distress, wheezes, rales, rhonchi, stridor, accessory muscle use Cardiovascular Exam: Present: regular rate, normal rhythm, normal heart sounds. Absent: systolic murmur, diastolic murmur, rubs, gallop GI/Abdominal exam: Present: soft. Absent: distended, tenderness, guarding, rebound, rigid, mass Extremities exam: Present: normal inspection, normal capillary refill. Absent: pedal edema, calf tenderness Back exam: Present: normal inspection. Absent: CVA tenderness (R), CVA tenderness (L) Neurological exam: Present: alert Skin exam: Present: warm, dry, intact, normal color. Absent: rash Course Vital Signs 04/18/23 04/18/23 03:05 04:00 Temperature 98 F Pulse Rate 70 69 Respiratory 18 18 Rate Blood Pressure 159/89 131/58 O2 Sat by Pulse 98 97 Oximetry Chest Pain MDM - MDM The patient had chest x-ray that I interpreted as negative for acute infiltrate, pneumothorax, congestive heart failure. Was pt. sent in by a medical professional or institution ([facility], MAIL READER, urgent care, hospital, or halfway...) When possible be specific @ -[No] Did you speak to anyone other than the patient for history (EMS, parent, family, police, friend...)? What history was obtained from this source @ -[No] Did you review nursing and triage notes (agree or disagree)? Why? @ -[I reviewed and agree with nursing and triage notes] Were old charts reviewed (outside hosp., previous admission, EMS record, old EKG, old radiological studies, urgent care reports/EKG's, halfway records)? Report findings @ -[No old charts were reviewed] Differential Diagnosis (chest pain, altered mental status, abdominal pain women, abdominal pain men, vaginal bleeding, weakness, fever, dyspnea, syncope, headache, dizziness, GI bleed, back pain, seizure, CVA, palpatations, mental health, musculoskeletal)? @ -[Differential Chest Pain: Stable Angina, Unstable Angina, STEMI, NSTEMI Aortic Dissection, Pneumothorax, Musculoskeletal, Esophageal Spasm GERD, Cholecystitis, Pancreatitis, Zoster, this is not meant to be an all-inclusive list. EKG interpreted by me (3pts min.). @ -I interpreted as above] X-rays interpreted by me (1pt min.). @ -[I interpreted as above CT interpreted by me (1pt min.). @ -[None done] U/S interpreted by me (1pt. min.). @ -[None done] What testing was considered but not performed or refused? (CT, X-rays, U/S, labs)? Why? @ -[None] What meds were considered but not given or refused? Why? @ -[None] Did you discuss the management of the patient with other professionals (professionals i.e. , PA, MAIL READER, lab, RT, psych nurse, clinical social work therapist, shirt creaser, teacher, network security officer, correctional case manager)? Give summary @ -[No] Was smoking cessation discussed for >3mins.? @ -[No] Was critical care preformed (if so, how long)? @ -[No] Were there social determinants of health that impacted care today? How? (Homelessness, low income, unemployed, alcoholism, drug addiction, transportation, low edu. Level, literacy, decrease access to med. care, usp, rehab)? @ -[No] Was there de-escalation of care discussed even if they declined (Discuss DNR or withdrawal of care, Hospice)? DNR status @ -[No] What co-morbidities impacted this encounter? (DM, HTN, Smoking, COPD, CAD, Cancer, CVA, ARF, Chemo, Hep., AIDS, mental health diagnosis, sleep apnea, morbi d obesity)? @ -[None] Was patient admitted / discharged? Hospital course, mention meds given and route, prescriptions, significant lab abnormalities, going to OR and other pertinent info. @ -[Patient is a 53-year-old woman presenting to have evaluation of chest pain that developed while she was sleeping. The patient does not have exertional component of chest pain. The initial workup here is negative. I did discuss admission, the patient is feeling better and does not want to stay currently. She understands need for further evaluation. She will follow with cardiology or her PMD. She will return should any symptoms recur or new symptoms develop. Return parameters discussed Undiagnosed new problem with uncertain prognosis? @ -[No] Drug Therapy requiring intensive monitoring for toxicity (Heparin, Nitro, Insulin, Cardizem)? @ -[No] Were any procedures done? @ -[No] Diagnosis/symptom? @ -[Acute chest pain Acute, or Chronic, or Acute on Chronic? @ -[Acute Uncomplicated (without systemic symptoms) or Complicated (systemic symptoms)? @ -[Uncomplicated Side effects of treatment? @ -[No] Exacerbation, Progression, or Severe Exacerbation? @ -[No] Poses a threat to life or bodily function? How? (Chest pain, [place], [place], pneumonia, PE, COPD, DKA, ARF, appy, cholecystitis, CVA, Diverticulitis, Homicidal, Suicidal, threat to staff... and all critical care pts) @ -[No] Disposition Clinical Impression: Chest pain Disposition: HOME SELF-CARE Condition: Good Instructions (If sedation given, give patient instructions): Chest Pain (ED) Is patient prescribed a controlled substance at d/c from ED?: No Referrals: Forrest Tejada MD [Primary Care Provider] - 1-2 days
[2023-04-18 03:34] VITALS: RESP 18; TEMP 98
[2023-04-18 03:38] LABS: Basophils # (A) 0.1 k/uL (0-0.2); Basophils % (A) 1 %; Eosinophils # (A) 0.2 k/uL (0-0.7); Eosinophils % (A) 2 %; HCT 41.9 % (34.0-46.0); HGB 14.4 gm/dL (11.4-16.0); Lymphocytes # (A) 4.3 k/uL (1.0-4.8); Lymphocytes % (A) 35 %; MCH 32.4 pg (25.0-35.0); MCHC 34.2 g/dL (31.0-37.0); MCV 94.5 fL (80.0-100.0); Mean Platelet Volume 6.7; Monocytes # (A) 0.6 k/uL (0-1.0); Monocytes % (A) 5 %; Neutrophils % (A) 57 %; Platelet Count 249 k/uL (150-450); RBC 4.44 m/uL (3.80-5.40); RDW 11.8 % (11.5-15.5); WBC 12.2 k/uL (3.8-10.6)
[2023-04-18 03:49] LABS: ALT 58 U/L (4-34); AST 44 U/L (14-36); African American GFR (CKD) >90 (>60 ml/min/1.73 sqM); Albumin 3.8 g/dL (3.5-5.0); Alkaline Phosphatase 127 U/L (38-126); Anion Gap 5 mmol/L; Blood Urea Nitrogen 16 mg/dL (7-17); Calcium 9.5 mg/dL (8.4-10.2); Carbon Dioxide 27 mmol/L (22-30); Chloride 105 mmol/L (98-107); Glucose 119 mg/dL (74-99); Magnesium 1.9 mg/dL (1.6-2.3); Non-African American GFR(CKD) >90 (>60 ml/min/1.73 sqM); Potassium 3.8 mmol/L (3.5-5.1); Sodium 137 mmol/L (137-145); Total Bilirubin 0.5 mg/dL (0.2-1.3); Total Protein 6.3 g/dL (6.3-8.2)
[2023-04-18] MEDS: ASPIRIN 81 MG PO STA (04:05)
[2023-04-18 04:15] LABS: INR 0.9 (<1.2); Partial Thromboplastin Time 23.8 sec (22.0-30.0)
[2023-04-18 04:33] VITALS: BP 131/58; PULSE 69
--- NOTE | 2023-04-18 06:33 | XR ---
EXAMINATION TYPE: XR chest 2V DATE OF EXAM: 04/18/2023 COMPARISON: NONE HISTORY: Chest pain TECHNIQUE: Frontal and lateral views of the chest are obtained. FINDINGS: The heart is prominent in size and there is suggestion of slight cephalization of pulmonary vasculatu re. There is no abnormal consolidative interstitial opacity. There is no pleural effusion or pneumothorax. The osseous structures are intact. IMPRESSION: Findings raise a question of mild CHF. The heart is prominent in size and vasculature ap pear mildly prominent..
== END 2023-04-18 04:58 | disposition home or self-care (01) ==
LOC: EC 03:02
DX: R07.89 Other chest pain (principal); I10 Essential (primary) hypertension; G47.30 Sleep apnea, unspecified; Z79.899 Other long term (current) drug therapy
CPT/HCPCS: 36415; 71046; 80053; 83735; 84484; 85025; 85610; 85730; 93005; 99285

== ENCOUNTER → 2023-04-19 | Outpatient (CLI) | payer MEDICAID | END | disposition home or self-care (01) | LOC: LABWHC1 16:29 | PROVIDERS: ATTEND Emergency Medicine | DX: R07.9 Chest pain, unspecified (principal) | CPT/HCPCS: 36415; 84484 ==

== ENCOUNTER 2024-01-25 10:14 | Day surgery (SDC) | payer MEDICAID ==
[2024-01-25 10:42] VITALS: TEMP 97.3
[2024-01-25] MEDS ORDERED: ROPIVACAINE 5MG/ML 20ML VIAL ONE (10:53)
--- NOTE | 2024-01-25 11:13 | P.PCN ---
Date of Procedure: 01/25/24 Procedure(s) Performed: Operation= Right genicular nerves block ( X3 nerve ) under fluoroscopy guidance. 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 2-Sever osteoarthritis of the right knee. Postoperative diagnoses= same as preop. Condition= stable. Complications=none. Anesthesia= Ropivacaine 0.5% 3 mL skin and subcu infiltration. Description of the procedure= risk and benefit from the procedure discussed with the patient and he agreed with the preceding including but not limited to risk of infection and bleeding not complete pain relief and ALLERGIC reaction to the medication, patient taken to the operating room placed in supine position or standard monitors applied to the patient then after induction of anesthesia, the area prepped with chlorhexidine 3, then under fluoroscopy guidance and after us ing lidocaine 1% for skin and subcutaneous tissue infiltrations using 22-gauge Quincke-type spinal needle first needle advanced and placed at the superior medial epicondyle of the femur and the needle tip was in direct contact with the periosteum then 2 ML of Ropivacaine 0.5% injected after negative aspiration, there was no paresthesia during the injection, then another 22 gauge spinal needle advanced at the superior lateral epicondyle of the femur, and the needle was in direct contact with the periosteum of the lateral epicondyle, then after negative aspiration for heme, and there was no paresthesia during the injection total of 2 ML of Ropivacine 0.5% injected after negative aspiration, and then the needle advanced and placed at the distal medial epicondyle of the tibia ,and the needle tip was placed at the direct contact on the periosteum of the medial epicondyle of the tibia, and then after negative aspiration for heme and there was no paresthesia during the injection 2 ML of Ropivacaine 0.5% injected after negative aspiration patient tolerated the procedure well without any complication and will follow up with the pain clinic in a few weeks
[2024-01-25] MEDS ORDERED: LACTATED RINGERS 1,000 ML IV SCH (11:15)
[2024-01-25 11:32] VITALS: BP 131/80; PULSE 64; RESP 14
--- NOTE | 2024-01-25 11:47 | FL ---
EXAMINATION TYPE: FL guided pain mgmt statistic DATE OF EXAM: 01/25/2024 11:16 AM COMPARISON: Pre Operative Images if available both CT/MRI or plain film CLINICAL INDICATION: Female, 54 years old with history of PAIN; TECHNIQUE: FL guided pain mgmt statistic, multiple fluoroscopic images provided for procedure. Total fluoroscopy time: 47.8 seconds Total submitted images to PACS: 7 DAP: [id number] mGym2 Gycm2 uGym2 cGycm2 or equivalent. FINDINGS: Fluoroscopic images during injection for pain management demonstrate multilevel degeneration changes throughout the spine. No evidence for fracture. No acute process identified. IMPRESSION: 1. No evidence for intraoperative complication. 2. Please see the operative/procedural note for further details. [facility], , 01/25/2024 11:45 AM
== END 2024-01-25 11:38 | disposition home or self-care (01) ==
LOC: ORPAIN 10:14
PROVIDERS: ATTEND Specialist
DX: M17.11 Unilateral primary osteoarthritis, right knee (principal)
CPT/HCPCS: 64454; J2795

== ENCOUNTER → 2024-02-07 | Outpatient (CLI) | payer MEDICAID ==
[2024-02-07 13:50] VITALS: BP 135/82; PULSE 69; RESP 16
--- NOTE | 2024-02-07 16:23 | P.PAINPG ---
Objective - Vital Signs Vital signs: Intake & Output 02/06/24 02/07/24 02/07/24 18:59 06:59 18:59 Weight 128 kg PQRS Measure Charge Sheet Comment: A 54 yr old female with a history of severe and chronic R knee pain secondary to DJD presents today for evaluation s/p Right genicular nerves block #1. Pt states she experienced 100% pain relief x 2 wks s/p procedure. Pain level is provoked at 3 /10 in intensity, constant, localized in the lumbar spine, dull in character without shooting pain. Pain is provoked by weight bearing activity. Pain is alleviated with injections, OTC medications, repositioning, manual massage and rest. Interventional pain procedures completed include R genicular nerves block x3 #1 Patient is currently on OTC medications Patient denies any side effects of the medication(s), denies excessive drowsiness or sleepiness, denies suicidal ideation and reports that the current pain medication is helping to control the pain and improve activities of daily living. Patient denies any motor or sensory deficits. Patient denies any fever or night sweats, denies any change in the bowel movements or urination. Physical Examination: -Constitutional: Cooperative. Not in acute distress . - Neurologic: Cranial nerve II to XII intact. No focal neurological deficits. - Psychatric: Alert & oriented x 3. Matching mood & appropriate affect. Judgment and insight intact. - Musculoskeletal: Cervical spine: Muscle bulk/ tone/ strength in the bilateral upper extremities normal Vertebral body tenderness to palpation over Spurling test positive Distraction test positive Facet loading test positive TTP Thoracic spine Muscle bulk / tone/ strength in the bilateral paraspinal muscles normal Vertebral body tender to palpation over Facet loading test positive TTP Lumbar spine: Motor bulk/ tone/ strength lower extremities , thigh and legs : 5/5 Deep tendon reflexes : Normal Knee Jerk. Normal Ankle Jerk . Vertebral body tenderness to palpation over Cage Test positive Lumbar Facet Loading Test positive Straight Leg Raise: positive at 30 degrees right side/ left side Gaenslen's Test positive Sacral spine : Severe tenderness over the Sacroiliac joint: right side / left side Range of motion: Flexion of the lumbar spine <60 degrees Range of motion: Extension of the lumbar spine <20 degrees Gaenslen's Test positive right side / left side Eleanor test: positive right side / left side Thigh Thrust Test positive right side / left side Sacral Thrust Test positive right side / left side R Knee : Diffuse TTP Assessment and plan: Chronic R knee pain secondary to DJD Recommendation of R Ggenicular Nerve Block x3 #2. Risks, benefits of procedure discussed and pt verbalized understanding. All questions answered. I have spent less than 30 minutes on patient care today. Dr Gregory was available by phone for the evaluation of this patient. The time was used to review the medical records including relevant urine studies and Prescription history (MAPs), review of the available imaging, evaluation and examination of the patient, coordination of care with the medical staff and if applicable referring physicians, as well as creation of the medical record PQRS Narrative: Smoking Status Never smoker Home Medications: Ambulatory Orders lisinopriL [Zestril] 10 mg PO HS 03/22/20 Controlled Substance Measures - Controlled Substance Measures Is patient prescribed a controlled substance at discharge?: No
== END ==
LOC: PNWHC3 13:21
PROVIDERS: ATTEND Specialist
DX: M17.11 Unilateral primary osteoarthritis, right knee (principal)
CPT/HCPCS: 99211

== ENCOUNTER 2024-02-15 06:16 | Day surgery (SDC) | payer MEDICAID ==
[2024-02-15 06:38] VITALS: TEMP 97.9
[2024-02-15] MEDS ORDERED: LACTATED RINGERS 1,000 ML IV SCH (06:45)
[2024-02-15] MEDS ORDERED: ROPIVACAINE 5MG/ML 20ML VIAL ONE (07:02)
[2024-02-15 07:30] VITALS: RESP 16
[2024-02-15 07:38] VITALS: BP 130/87; PULSE 65
--- NOTE | 2024-02-15 08:07 | P.PCN ---
Description of Procedure: Preprocedure diagnosis. Knee pain, knee joint osteoarthritis. Postprocedure diagnosis. As above. Procedure done. Right knee joint 3 genicular nerve block with local anesthetics under fluoroscopic guidance. Anesthesia. Local infiltration with local anesthetics. Continuous pulse ox EKG blood pressure and verbal communication was maintained with the patient. Blood loss. None. Indication. Discussed with the patient of alternatives, complications which may include infection, bleeding, nerve damage all of which could be permanent. Patient understands and all questions were answered. Procedure note. After getting consent patient in OR in supine position. After prepping and draping, after injecting 5 cc of 1% lidocaine subcutaneously, a 22- gauge spinal needle was introduced under AP view of the fluoroscope at the junction of the shaft of the femur and lateral epicondyle. When the periosteum was touch, needle was continued up to one third of the shaft diameter confirmed by lateral view of the fluoroscope. After needle position confirmation by AP and crosstable lateral view, 2 mL of 0.5% ropivacaine was injected. In exactly same way. After local infiltration with 5 mL of 1% lidocaine, 22-gauge spinal needle was placed at the junction of the femur shaft and medial epicondyles, and at the junction of the shaft of the tibia and medial epicondyle of the tibia. After needle position confirmation by AP and crosstable lateral view 2 mL of 0.5% ropivacaine injected at each point. So, total 3 points were injected at superior medial, superior lateral, inferior medial genicular nerve area. Spinal needles were taken out bandages were applied. Disposition. Patient tolerated the procedure well. No complications. Patient was sent home in stable condition.
--- NOTE | 2024-02-15 08:47 | FL ---
EXAMINATION TYPE: FL guided pain mgmt statistic DATE OF EXAM: 02/15/2024 7:29 AM COMPARISON: Pre Operative Images if available both CT/MRI or plain film CLINICAL INDICATION: Female, 54 years old with history of GENICULAR NERVE BLOCK; TECHNIQUE: FL guided pain mgmt statistic, multiple fluoroscopic images provided for procedure. Total fluoroscopy time: 11.7 seconds Total submitted images to PACS: 4 DAP: [id number] mGym2 Gycm2 uGym2 cGycm2 or equivalent. FINDINGS: Fluoroscopic images during injection for pain management demonstrate multilevel degeneration changes throughout the spine. No evidence for fracture. No acute process identified. IMPRESSION: 1. No evidence for intraoperative complication. 2. Please see the operative/procedural note for further details. [facility], , 02/15/2024 8:45 AM
== END 2024-02-15 07:41 | disposition home or self-care (01) ==
LOC: ORPAIN 06:16
PROVIDERS: ATTEND Pain Medicine Interventional Pain Medicine
DX: M17.11 Unilateral primary osteoarthritis, right knee (principal)
CPT/HCPCS: 64454; J2795

== ENCOUNTER → 2024-02-21 | Outpatient (CLI) | payer MEDICAID ==
[2024-02-21 11:25] LABS: Appearance,Urine Clear (Clear); Bilirubin,Urine Negative (Negative); Blood,Urine Trace (Negative); Color,Urine Yellow; Glucose,Urine (UA) Negative (Negative); Ketones,Urine Negative (Negative); Leukocyte Esterase,Urine Negative (Negative); Mucus,Urine Occasional /hpf; Nitrite,Urine Negative (Negative); PH, Urine 5.5 (5.0-8.0); Protein,Urine Negative (Negative); RBC,Urine 1 /hpf (0-5); Specific Gravity,Urine 1.026 (1.001-1.035); Squamous Epithelial Cell,Urine 2 /hpf (0-4); Urobilinogen,Urine <2.0 mg/dL (<2.0); WBC,Urine <1 /hpf (0-5)
[2024-02-21 14:55] LABS: Basophils # (A) 0.04 X 10*3/uL (0.00-0.10); Basophils % (A) 0.6 %; Eosinophils % (A) 1.5 %; HCT 43.8 % (37.2-46.3); HGB 15.1 g/dL (12.0-15.0); Lymphocytes # (A) 2.11 X 10*3/uL (0.90-5.00); Lymphocytes % (A) 32.1 %; MCH 32.6 pg (27.0-32.0); MCHC 34.5 g/dL (32.0-37.0); MCV 94.6 FL (80.0-97.0); Mean Platelet Volume 9.3 FL (9.5-12.2); Monocytes # (A) 0.43 X 10*3/uL (0.20-1.00); Monocytes % (A) 6.5 %; NRBC Per 100 WBC 0 X 10*3/uL (0.00-0.01); Neutrophils # (A) 3.88 X 10*3/uL (1.80-7.70); Platelet Count 243 X 10*3/uL (140-440); RBC 4.63 X 10*6/uL (4.10-5.20); RDW 11.5 % (11.5-14.5); WBC 6.58 X 10*3/uL (4.50-10.00)
[2024-02-21 15:37] LABS: % Iron Saturation 68.35 (12.00-45.00); ALT 75 U/L (8-44); AST 45 U/L (13-35); Albumin 4.3 g/dL (3.8-4.9); Albumin/Globulin Ratio 2.05 Ratio (1.60-3.17); Alkaline Phosphatase 103 U/L (41-126); Calcium 9.7 mg/dL (8.7-10.3); Carbon Dioxide 22.8 mmol/L (21.6-31.8); Chloride 107 mmol/L (96-109); Chol/HDL Ratio 2.93 Ratio; Creatine Kinase 50 U/L (26-186); Globulin 2.1 g/dL (1.6-3.3); Glucose 93 mg/dL (70-110); Iron 216 UG/DL (50-170); LDL Cholesterol,Calculated 98.6 mg/dL (0.0-131.0); Potassium 4.2 mmol/L (3.5-5.5); Sodium 141 mmol/L (135-145); Total Bilirubin 0.5 mg/dL (0.3-1.2); Total Iron Binding Capacity 316 UG/DL (228-460); Total Protein 6.4 g/dL (6.2-8.2)
[2024-02-21 15:45] LABS: Hepatitis A Antibody IgM Nonreactive (Nonreactive); Hepatitis B Core IgM Nonreactive (Nonreactive); Hepatitis B Surface Antigen Nonreactive (Nonreactive); Hepatitis C IgG Antibody Nonreactive (Nonreactive)
[2024-02-21 15:59] LABS: Ceruloplasmin 24.1 mg/dL (20.0-60.0)
[2024-02-22 10:15] LABS: Liver/Kidney Microsome Antibod 1.1 UNITS (<=20)
== END | disposition home or self-care (01) ==
LOC: LABWHC1 09:50
PROVIDERS: ATTEND Internal Medicine
DX: Z00.00 Encounter for general adult medical examination without abnormal findings (principal); I10 Essential (primary) hypertension; G47.33 Obstructive sleep apnea (adult) (pediatric); E55.9 Vitamin D deficiency, unspecified; E78.2 Mixed hyperlipidemia; K75.81 Nonalcoholic steatohepatitis (NASH)
CPT/HCPCS: 36415; 80053; 80061; 80074; 81001; 82306; 82390; 82550; 82728; 83036; 83516; 83540; 83550; 83735; 84443; 85025; 86038; 86235; 86376

== ENCOUNTER → 2024-03-18 | Outpatient (CLI) | payer MEDICAID ==
--- NOTE | 2024-03-19 14:53 | MR ---
EXAMINATION TYPE: MR abdomen wo/w con DATE OF EXAM: 03/18/2024 8:30 AM COMPARISON: None CLINICAL INDICATION: Female, 54 years old with history of K75.81 NONALCOHOLIC STEATOHEPATITIS (JORDAN); PHH, Abdominal tenderness RUQ TECHNIQUE: Multiplanar multi-sequence imaging was performed without contrast. Post contrast imaging was performed. Post IV contrast subtraction images were also submitted for review. IV Contrast: 12 mL Gadobutrol FINDINGS: LOWER CHEST: Pars mildly enlarged for size. ABDOMEN Liver: No evidence for cirrhosis. Signal dropout on chemical shift out of phase imaging. Low T1/T2 no nenhancing lesion in the right hepatic lobe posteriorly possibly representing calcification Gallbladder and Bile ducts: No evidence for ductal dilation, or biliary stricture or evidence of chol edocholithiasis. The gallbladder demonstrates low signal gallstones present. One stone is present in the gallbladder neck measuring up to 14 mm. Pancreas: No ductal dilation. No evidence for solid mass. Spleen: Normal for size. Small splenules present. Adrenal glands: Unremarkable. Kidneys: No evidence for obstructive uropathy. No suspicious renal masses. Stomach and Bowel: No evidence for bowel wall thickening or evidence for obstruction. Scattered colon ic diverticula. Retroperitoneum/Peritoneum: No evidence of pneumoperitoneum or free fluid. Vasculature: No aortic aneurysm. Musculoskeletal: The osseous structures appear intact. Lymph Nodes: No gross evidence for lymphadenopathy. Abdominal wall: Unremarkable. IMPRESSION: 1. No evidence for acute process. 2. Hepatic steatosis. 3. Cholelithiasis with at least one stone near the gallbladder neck. 4. Mild cardiomegaly 5. Colonic diverticulosis. [facility], , 03/19/2024 2:51 PM
== END | disposition home or self-care (01) ==
LOC: RADMRIMAIN 07:31
PROVIDERS: ATTEND Internal Medicine
DX: K75.81 Nonalcoholic steatohepatitis (NASH) (principal); R79.89 Other specified abnormal findings of blood chemistry; K80.20 Calculus of gallbladder without cholecystitis without obstruction; I51.7 Cardiomegaly; K57.30 Diverticulosis of large intestine without perforation or abscess without bleeding
CPT/HCPCS: 81256; 74183; A9585

== ENCOUNTER → 2024-03-22 | Outpatient (CLI) | payer MEDICAID ==
[2024-03-22 11:36] VITALS: BP 139/83; PULSE 62; RESP 17; TEMP 97.8
--- NOTE | 2024-03-22 16:06 | P.PAINPG ---
PQRS Measure Charge Sheet Comment: A 54 yr old female with a history of severe and chronic R knee pain secondary to DJD presents today for evaluation s/p Right Genicular nerves block #2. Pt states she experienced 100% pain relief x 1 day s/p procedure. Pain level is provoked at 3 /10 in intensity, constant, localized in the lumbar spine, dull in character without shooting pain. Pain is provoked by weight bearing activity. Pain is alleviated with injections, OTC medications, repositioning, manual massage and rest. Interventional pain procedures completed include R genicular nerves block x3 #2 Patient is currently on OTC medications Patient denies any side effects of the medication(s), denies excessive drowsiness or sleepiness, denies suicidal ideation and reports that the current pain medication is helping to control the pain and improve activities of daily living. Patient denies any motor or sensory deficits. Patient denies any fever or night sweats, denies any change in the bowel movements or urination. Physical Examination: -Constitutional: Cooperative. Not in acute distress . - Neurologic: Cranial nerve II to XII intact. No focal neurological deficits. - Psychatric: Alert & oriented x 3. Matching mood & appropriate affect. Judgment and insight intact. - Musculoskeletal: Cervical spine: Muscle bulk/ tone/ strength in the bilateral upper extremities normal Vertebral body tenderness to palpation over Spurling test positive Distraction test positive Facet loading test positive TTP Thoracic spine Muscle bulk / tone/ strength in the bilateral paraspinal muscles normal Vertebral body tender to palpation over Facet loading test positive TTP Lumbar spine: Motor bulk/ tone/ strength lower extremities , thigh and legs : 5/5 Deep tendon reflexes : Normal Knee Jerk. Normal Ankle Jerk . Vertebral body tenderness to palpation over Cage Test positive Lumbar Facet Loading Test positive Straight Leg Raise: positive at 30 degrees right side/ left side Gaenslen's Test positive Sacral spine : Severe tenderness over the Sacroiliac joint: right side / left side Range of motion: Flexion of the lumbar spine <60 degrees Range of motion: Extension of the lumbar spine <20 degrees Gaenslen's Test positive right side / left side Eleanor test: positive right side / left side Thigh Thrust Test positive right side / left side Sacral Thrust Test positive right side / left side R Knee : Diffuse TTP Assessment and plan: Chronic R knee pain secondary to DJD Recommendation of R genicular nerves RFA x3. Risks, benefits of procedure discussed and pt verbalized understanding. Protocol for discontinuation/ continuation of medications jeovanny procedure discussed. Minimal anesthesia including Fentanyl and Versed if clinically indicated. All questions answered. I have spent less than 30 minutes on patient care today. Dr Gregory was available by phone for the evaluation of this patient. The time was used to review the medical records including relevant urine studies and Prescription history (MAPs), review of the available imaging, evaluation and examination of the patient, coordination of care with the medical staff and if applicable referring physicians, as well as creation of the medical record - Pain Location Bilateral Knee Non-Pharmacological Interventions: Inactivity PQRS Narrative: Smoking Status Never smoker Hx Alcohol Use (MH) No Home Medications: Ambulatory Orders lisinopriL [Zestril] 10 mg PO HS 03/22/20 Controlled Substance Measures - Controlled Substance Measures Is patient prescribed a controlled substance at discharge?: No
== END ==
LOC: PNWHC3 11:06
PROVIDERS: ATTEND Specialist
DX: M17.11 Unilateral primary osteoarthritis, right knee (principal); M25.561 Pain in right knee
CPT/HCPCS: 99211

== ENCOUNTER 2024-04-07 06:18 | Day surgery (SDC) | payer MEDICAID ==
[2024-04-07] MEDS: IV FLUID CONTINUATION 1,000 ML IV ONE (06:30)
[2024-04-07 06:46] VITALS: TEMP 97.4
[2024-04-07] MEDS: LACTATED RINGERS 1,000 ML IV SCH (06:46)
[2024-04-07] MEDS ORDERED: methylPREDNISolone ACETATE 80 MG/ML 1 ML VIAL ONE (07:07)
[2024-04-07] MEDS ORDERED: fentaNYL (PF) 50 MCG/ML 2 ML AMP ONE (07:07)
[2024-04-07] MEDS ORDERED: ROPIVACAINE 5MG/ML 20ML VIAL ONE (07:07)
[2024-04-07] MEDS ORDERED: MIDAZOLAM 2 MG/2 ML VIAL ONE (07:07)
[2024-04-07] MEDS ORDERED: ONDANSETRON 4 MG/2 ML VIAL ONE (07:07)
--- NOTE | 2024-04-07 07:42 | P.PCN ---
Date of Procedure: 04/07/24 Procedure(s) Performed: Preoperative diagnoses=1-Genicular nerve neuralgia 2-severe osteoarthritis of the Right knee. Postoperative diagnoses= same as preoperative diagnoses. Procedure= radiofrequency thermocoagulation of the right genicular nerves under fluoroscopy guidance 3 nerves (fluoroscopy images available in the Rad Dept) Condition= stable. Complications= none. Anesthesia= moderate sedation with intravenous Versed 2 mg and fentanyl 100 micrograms,(patient start time 07:07, end time 07:35 ) With local infiltration of the skin and subcutaneous tissue with ropivacaine 0.5% 6 mL for skin and subcu infiltration. Description of the procedure= the risk and benefits and alternative of the p rocedure discussed with the patient and agreed with proceeding, including but not limited to risk of infection and bleeding not complete pain relief ALLERGIC reaction to the medication, patient signed the consent and all questions discussed with the patient and answer patient taken to the operating room placed in the OR table in supine position, IV medication given to minimize and excitedly and vital signs were monitored and remained stable throughout the procedure was placed under the knee, and the area prepped with chlorhexidine 3 been under fluoroscopy guidance and after using lidocaine 1% for skin and subcu tissue infiltrations 18-gauge 10 mm radiofrequency active tip needle advanced slowly under fluoroscopy on the first needle placed at the superior medial epicondyle of the femur and the needle tip was in direct contact with the periosteum ,then another 18-gauge radiofrequency active tip needle 10 mm , needle was advanced slowly and placed at the superior lateral epicondyle of the femur and the needle was in the direct contact with the periosteum of the lateral epicondyle, Then third 18-gauge radiofrequency active tip needle 10 mm advanced slowly under fluoroscopy and placed at the distal medial epicondyle of the tibia and the needle tip was placed under direct contact of the periosteum of the medial epicondyle of the tibia , and the needles placement confirmed under fluoroscopy with the AP and lateral view and after appropriate needle placement confirmed and then we did the sensory stimulation testing at 50 mHz and 0 to 1 volt , was positive for localized to the knee area , then we did the motor testing at 2 Hz and 0 to 2.5 volts , there was no contractions in the muscle of the lower extremity then all the sides underwent radiofrequency thermocoagulation at 80C for 90 seconds after injection HALF mL PRESERVATIVE-free lidocaine 1% and after the Thermocoagulation is done the cannulas removed and Marcaine 0.5% 5 ml and 80 mg of Depo-Medrol mixed together , and 2 ml of the mixture injected at each needle after negative aspiration under was no paresthesia during the injection patient tolerated the procedure well and will follow up with the pain clinic in a few weeks
--- NOTE | 2024-04-07 07:43 | FL ---
Intraoperative/procedural fluoroscopic services were provided for geniculate nerve RF. Total fluorosc opy time is 14.7 seconds with a total of 8 submitted images to PACS. Total DAP [id number] mGym2. Please see the operative note for further details. [facility], , 04/07/2024 7:41 AM
[2024-04-07] MEDS: IV FLUID CONTINUATION 400 ML IV ONE (07:53)
[2024-04-07 08:34] VITALS: RESP 16
[2024-04-07 08:54] VITALS: BP 129/77; PULSE 56
== END 2024-04-07 09:19 | disposition home or self-care (01) ==
LOC: ORPAIN 06:18
PROVIDERS: ATTEND Specialist
DX: M17.11 Unilateral primary osteoarthritis, right knee (principal)
CPT/HCPCS: 64624; J2250; J2405; J3010; J2795; J1010; 99152; 99153

== ENCOUNTER 2024-05-24 10:57 | Outpatient (CLI) | payer MEDICAID ==
[~2024-05-24 10:57] MED LIST: SODIUM CHLORIDE 0.9% 250 ML in EMPTY BAG 1 BAG IV PRN; SODIUM CHLORIDE 0.9% 500 ML 500 ML in EMPTY BAG 1 BAG IV PRN
[2024-05-24 11:08] VITALS: TEMP 97.8
[2024-05-24 11:19] LABS: HGB 13.9 gm/dL (11.4-16.0); MCH 31.9 pg (25.0-35.0); MCHC 33.9 g/dL (31.0-37.0); Mean Platelet Volume 6.5; Platelet Count 311 k/uL (150-450); RBC 4.36 m/uL (3.80-5.40); RDW 12.3 % (11.5-15.5); WBC 7.1 k/uL (3.8-10.6)
[2024-05-24 12:22] VITALS: BP 135/85; PULSE 75; RESP 16
[2024-05-24 17:21] LABS: % Iron Saturation 60.71 (12.00-45.00)
== END 2024-05-25 13:45 | disposition home or self-care (01) ==
LOC: PROCWHC3 10:57
PROVIDERS: ATTEND Internal Medicine Hematology & Oncology
DX: E83.118 Other hemochromatosis (principal)
CPT/HCPCS: 36415; 82728; 83540; 83550; 85027; 99195

== ENCOUNTER → 2024-06-06 | Outpatient (CLI) | payer MEDICAID ==
--- NOTE | 2024-06-07 10:21 | CA ---
Transthoracic Echo Report Name: Suzanne Hernandez Age: 54 Gender: F : 1970 Exam Date: 06/06/2024 16:32 Exam Location: [facility] Ht (in): 67 Wt (lb): 262 Ordering Physician: Forrest Tejada MD Attending/Referring Phys: Forrest Tejada MD Packing Attendant Leela Galvan RDCS Procedure CPT: Indications: I51.7 Cardiomegaly Cardiac Hx: Technical Quality: Fair Contrast 1: Total Dose (mL): Contrast 2: Total Dose (mL): MEASUREMENTS (Male / Female) Normal Values 2D ECHO LV Diastolic Diameter PLAX 4.8 cm 4.2 - 5.9 / 3.9 - 5.3 cm LV Systolic Diameter PLAX 3.2 cm IVS Diastolic Thickness 1.1 cm 0.6 - 1.0 / 0.6 - 0.9 cm LVPW Diastolic Thickness 1.1 cm 0.6 - 1.0 / 0.6 - 0.9 cm LV Relative Wall Thickness 0.5 LVOT Diameter 2.5 cm LV Diastolic Volume MOD BP 125.9 cm??? 67 - 155 / 56 - 104 cm??? LV Systolic Volume MOD BP 48.0 cm??? 22 - 58 / 19 - 49 cm??? LV Ejection Fraction MOD BP 61.9 % >= 55 % LV Cardiac Index MOD BP 2408.1 cm???/min???m??? LV Diastolic Volume MOD 4C 123.2 cm??? LV Systolic Volume MOD 4C 43.3 cm??? LV Ejection Fraction MOD 4C 64.8 % LV Cardiac Index MOD 4C 2468.6 cm???/min???m??? LV Diastolic Length 4C 8.6 cm LV Systolic Length 4C 7.2 cm LV Diastolic Volume MOD 2C 123.7 cm??? LV Systolic Volume MOD 2C 51.6 cm??? LV Ejection Fraction MOD 2C 58.3 % LV Cardiac Index MOD 2C 2226.9 cm???/min???m??? LV Diastolic Length 2C 8.2 cm LV Systolic Length 2C 7.0 cm LA Volume 56.2 cm??? 18 - 58 / 22 - 52 cm??? LA Volume Index 23.2 cm???/m??? 16 - 28 cm???/m??? DOPPLER AV Peak Velocity 122.3 cm/s AV Peak Gradient 6.0 mmHg AV Mean Velocity 78.7 cm/s AV Mean Gradient 2.8 mmHg AV Velocity Time Integral 23.1 cm LVOT Peak Velocity 113.2 cm/s LVOT Peak Gradient 5.1 mmHg LVOT Velocity Time Integral 22.1 cm LVOT Stroke Volume 107.9 cm??? LVOT Stroke Volume Index 47.6 ml/m??? LVOT Cardiac Index 3334.5 cm???/min???m??? AV Area Cont Eq vti 4.7 cm??? AV Area Cont Eq pk 4.5 cm??? MV Area PHT 3.0 cm??? Mitral E Point Velocity 62.8 cm/s Mitral A Point Velocity 53.1 cm/s Mitral E to A Ratio 1.2 MV Deceleration Time 251.9 ms PV Peak Velocity 80.4 cm/s PV Peak Gradient 2.6 mmHg FINDINGS Left Ventricle Left ventricular ejection fraction is estimated at 60 %. Mildly increased septal wall thickness. Mildly increased posterior wall thickness. Moderately increased left ventricular diastolic volume. No obvious regional wall motion abnormalities. Right Ventricle Normal right ventricular size and function. Unable to estimate the right ventricular systolic pressure. Right Atrium Right atrium not well visualized. Left Atrium Mildly increased left atrial volume. Mildly increased left atrial area. Mitral Valve Structurally normal mitral valve. No evidence for mitral valve prolapse. No mitral stenosis. Trace mitral regurgitation. Aortic Valve Aortic valve not well visualized. No aortic valve stenosis or regurgitation. Tricuspid Valve Structurally normal tricuspid valve. No tricuspid stenosis. No tricuspid regurgitation. Pulmonic Valve Pulmonic valve not well visualized. No pulmonic stenosis. No pulmonic regurgitation. Pericardium No pericardial effusion. Aorta Normal size aortic root and proximal ascending aorta. CONCLUSIONS Indication: Cardiomegaly Normal LV size and function with mild LVH Previewed by: Dr. Demarco Milian MD (Electronically Signed) Final Date: 07 June 2024 10:20
== END | disposition home or self-care (01) ==
LOC: RADECHMAIN 16:30
PROVIDERS: ATTEND Internal Medicine
DX: I51.7 Cardiomegaly (principal)
CPT/HCPCS: 93306